=== PATIENT | female | born 1940 | race Caucasian/White ===

== ENCOUNTER 2021-06-13 11:00 | Outpatient (RCR) | payer MEDICARE, SELFPAY ==
[2021-04-11 12:11] LABS: Glucose Point of Care 90 mg/dl (65-105)
== END 2021-06-13 12:19 | disposition home or self-care (01) ==
LOC: ANHCPREHAB 11:00
PROVIDERS: PCP Internal Medicine Endocrinology, Diabetes & Metabolism; Visit Provider Internal Medicine Cardiovascular Disease
DX: Z95.1 Presence of aortocoronary bypass graft (principal)
CPT/HCPCS: 93798